=== PATIENT | female | born 1955 | race Caucasian/White ===

== ENCOUNTER → 2018-10-02 09:05 | Outpatient (CLI) | payer OTHER, SELFPAY ==
--- NOTE | 2018-10-02 | DI.MRI.S_ITS ---
PROCEDURE: MR FEMUR LT WO CON INDICATIONS: LEG WEAKNESS - left TECHNIQUE: Noncontrast coronal and sagittal T1 spin echo and STIR; axial T1 spin echo and T2 fast spin echo with fat saturation through the left femur. COMPARISON: None. FINDINGS: Image quality: Excellent. Bones: The visualized bone marrow demonstrates normal overall signal. The overlying cortex appears intact. No fractures lines or intra-osseous lesions. Soft tissues: The scanned muscles demonstrate normal overall bulk and internal signal. There are 2 small areas of mild T2 hyperintensity within the adductor lacy muscle associated with small linear areas of T2 hypointensity suggestive of thrombosed vessels.. Subcutaneous tissues appear within normal limits. No soft tissue masses or fluid collections identified. There is mild tendinopathy at the origin of the hamstring tendons. IMPRESSION: 1. No acute abnormality identified within the femur. 2. 2 small areas of indistinct T2 hyperintensity with associated linear low signal centrally in the adductor lacy muscle suggestive of small thrombosed veins. Dictated by: Nicola Cotto M.D. on 10/02/2018 at 14:31 Approved by: Nicola Cotto M.D. on 10/02/2018 at 14:39
--- NOTE | 2018-10-02 | DI.MRI.S_ITS ---
4PROCEDURE: MR FEMUR RT WO CON INDICATIONS: LEG WEAKNESS - right TECHNIQUE: Noncontrast coronal and sagittal T1 spin echo and STIR; axial T1 spin echo and T2 fast spin echo with fat saturation through the right femur. COMPARISON: None. FINDINGS: Image quality: Excellent. Bones: The visualized bone marrow demonstrates normal overall signal. The overlying cortex appears intact. No fractures lines or intra-osseous lesions. Soft tissues: The scanned muscles demonstrate normal overall bulk and internal signal. Subcutaneous tissues also appear within normal limits. No discrete soft tissue masses or fluid collections identified. There is mild peritendinous edema along the origin of the hamstring tendons. Minimal edema is also demonstrated along the distal gluteal tendons at the greater trochanter. IMPRESSION: 1. No acute abnormality identified in the right femur. 2. Mild peritendinitis at the origin of the hamstring tendons and along the insertions of the gluteal tendons. Dictated by: Nicola Cotto M.D. on 10/02/2018 at 13:58 Approved by: Nicola Cotto M.D. on 10/02/2018 at 14:30
== END ==
PROVIDERS: Visit Provider Internal Medicine
DX: M62.81 Muscle weakness (generalized) (principal); M76.01 Gluteal tendinitis, right hip
CPT/HCPCS: 73718

== ENCOUNTER → 2020-12-10 10:05 | Outpatient (CLI) | payer MEDICARE, OTHER, SELFPAY ==
--- NOTE | 2020-12-10 | DI.MRI.S_ITS ---
PROCEDURE: MR LUMBAR SPINE WO CON INDICATIONS: Spinal stenosis, lumbosacral region TECHNIQUE: Noncontrast sagittal T1 spin echo and T2 fast echo, sagittal STIR, axial T1 and T2 fast spin echo through the lumbar spine. In cases with scoliosis, additional coronal T2 fast spin echo may be performed. COMPARISON: None. FINDINGS: Image quality: Excellent. Alignment and Curvature: Mild lumbar levoscoliosis. Anterolisthesis of L4 on L5 measuring 3 millimeters. Otherwise normal alignment. Vertebral body heights maintained. Bone Marrow: There is no suspicious focal marrow signal abnormality. Periarticular bone marrow edema in association with facet osteoarthropathy from L3-L4 through L5-S1, right greater than left. Spinal Cord: Conus medullaris terminates at the normal level. Visualized cord demonstrates normal signal and size. Paraspinous Soft Tissues: No paravertebral masses. T12-L1: No spinal canal or neural foraminal stenosis. L1-L2: No spinal canal or neural foraminal stenosis. L2-L3: No spinal canal or neural foraminal stenosis. L3-L4: Diffuse disc bulge flattens and indents the ventral thecal sac, displacing the descending bilateral L4 nerve roots within both subarticular zones. Bulky facet hypertrophy and buckling of the ligamentum flavum further contribute to moderate subarticular zone stenosis on the right. There is possible impingement of the descending right L4 nerve roots in the space. Foraminal components of the disc bulge and facet osteoarthropathy contribute to mild bilateral neural foraminal stenosis. L4-L5: Disc bulge and superimposed protrusion flatten and indent the ventral thecal sac. There is displacement of the descending L5 nerve roots within both subarticular zones. Foraminal components of the disc bulge and facet osteoarthropathy along with buckling of the ligamentum flavum contribute to mild neural foraminal narrowing bilaterally, right greater than left. L5-S1: Diffuse disc bulge and a superimposed broad-based posterior disc protrusion flatten and indent the ventral thecal sac. Disc material displaces the descending S1 nerve roots within both subarticular zones, right greater than left. Foraminal components of the disc bulge and facet hypertrophy contribute to mild neural foraminal narrowing on the left. IMPRESSION: Multilevel multifactorial degenerative changes, overall worst at L3-L4. Correlate for any corresponding radicular symptoms. Dictated by: Miah Hernandez M.D. on 12/11/2020 at 8:32 Approved by: Miah Hernandez M.D. on 12/11/2020 at 8:36
== END ==
PROVIDERS: Referring Provider Internal Medicine; Visit Provider Internal Medicine
DX: M54.5 Low back pain (principal); M48.07 Spinal stenosis, lumbosacral region; M47.817 Spondylosis without myelopathy or radiculopathy, lumbosacral region; M41.86 Other forms of scoliosis, lumbar region
CPT/HCPCS: 72148

== ENCOUNTER → 2021-03-14 11:07 | Outpatient (CLI) | payer MEDICARE, OTHER, SELFPAY ==
--- NOTE | 2021-03-14 | DI.CT.S_ITS ---
PROCEDURE: CT LUMBAR SPINE WO CON INDICATIONS: Other intervertebral disc degeneration, lumbar reg TECHNIQUE: Noncontrast 3 mm thick sections acquired from the T12 level to the sacrum. Sagittal and coronal reformats were constructed. For radiation dose reduction, the following was used: automated exposure control. COMPARISON: [facility], MR, MR LUMBAR SPINE WO CON, 12/10/2020, 10:16. FINDINGS: Image quality: Excellent. Bones: Mild levocurvature. Grade 1 anterolisthesis of L4 on L5. Diffuse osteopenia. No acute fracture. Multilevel degenerative endplate sclerosis and spurring. Diffuse facet arthropathy. Few small scattered Schmorl's nodes incidentally noted. T12-L1: No canal or foraminal stenosis. L1-L2: No canal or foraminal stenosis. L2-L3: No canal or foraminal stenosis. L3-L4: Pdzf-fq-fbwhbmve canal narrowing. Partial effacement of both lateral recesses with bilaterally symmetric appearance. Facet arthropathy is present with spurring, and small posterior osteophyte. No bony foraminal stenosis. No interval change L4-L5: Mild canal narrowing. Partial effacement of both lateral recesses with bilaterally symmetric appearance. Mild right foraminal narrowing without interval change. No left foraminal stenosis. L5-S1: Mild canal narrowing. Mild bilateral foraminal narrowing without interval change. Soft tissues: No retroperitoneal masses or hematomas. Visualized aorta is normal in caliber. IMPRESSION: Lumbar spondylosis and facet arthropathy as above. Grade 1 anterolisthesis of L4 on L5 Mild levocurvature Dictated by: Oj Bazan M.D. on 03/14/2021 at 13:00 Approved by: Oj Bazan M.D. on 03/14/2021 at 13:06
== END ==
PROVIDERS: PCP Internal Medicine; Referring Provider Orthopaedic Surgery Orthopaedic Surgery of the Spine; Visit Provider Orthopaedic Surgery Orthopaedic Surgery of the Spine
DX: M51.36 Other intervertebral disc degeneration, lumbar region (principal); M47.816 Spondylosis without myelopathy or radiculopathy, lumbar region; M43.16 Spondylolisthesis, lumbar region
CPT/HCPCS: 72131

== ENCOUNTER → 2021-03-19 09:16 | Outpatient (CLI) | payer MEDICARE, OTHER, SELFPAY ==
[2021-03-19 11:28] LABS: COVID19 -Nasal RAPID Negative (Negative)
== END ==
PROVIDERS: PCP Internal Medicine; Referring Provider Physician Assistant; Visit Provider Physician Assistant
DX: Z01.812 Encounter for preprocedural laboratory examination (principal); Z20.822 Contact with and (suspected) exposure to COVID-19
CPT/HCPCS: 87635; C9803

== ENCOUNTER 2021-03-21 10:49 | Inpatient (IN) | payer MEDICARE, OTHER, SELFPAY ==
[2021-03-15 09:49] VITALS: BMI 23.3
[2021-03-21] VITALS (20 sets, daily range): BP systolic 120–165; BP diastolic 55–96; PULSE 62–101; RESP 10–18; TEMP 35.9–36.9; O2SAT 90–100; BMI 23.3
--- NOTE | 2021-03-21 | DI.RAD.S_ITS ---
PROCEDURE: XR LUMBAR SPINE 2-3V INDICATIONS: L4-5 TLIF TECHNIQUE: 2 intraoperative fluoroscopic views of the lumbar spine were acquired. COMPARISON: None. FINDINGS: Intraoperative fluoroscopic images shows transpedicular fusion at L4-5 level with intervertebral spacer placement. IMPRESSION: Fluoro guidance was provided intraoperatively for posterior fusion at L4-5 level. Dictated by: Donell Sinclair M.D. on 03/21/2021 at 17:21 Approved by: Donell Sinclair M.D. on 03/21/2021 at 17:43
[2021-03-21] MEDS: LACTATED RINGERS 1,000 ML 42 ML IV ×2 (11:26→14:35)
--- NOTE | 2021-03-21 12:08 | PM.PREOP ---
Pre-operative Note COVID-19 COVID-19 status: Negative Result date/Date tested (Pos, Neg/Pending): 03/19/21 Interval Note History & Physical reviewed/Exam performed by Physician: Yes Changes to H&P: No
[2021-03-21] MEDS: CEFAZOLIN 1 GM VIAL 2 GM IV (13:11)
--- NOTE | 2021-03-21 13:38 | SUR.OPER ---
Prone on spine table, head in foam head support, padded chest and pelvic supports, gel pad at knees, lower legs supported by pillows; nipples, genitalia and toes free of pressure, arms secured on foam padded arm boards at <90 degrees abduction. Tape over blanket at thigh secured to table.
[2021-03-21] MEDS: BUPIVACAINE LIPOSOME 266 MG/20 ML VIAL INJ (13:43)
[2021-03-21] MEDS: BUPIVACAINE 0.25% (PF) VIAL 30 ML INJ (13:44)
--- NOTE | 2021-03-21 16:18 | P.OP_ITS ---
Operative Date/Time/Diagnoses Date of procedure: 03/21/21 Time of procedure: 13:20 Pre-op diagnosis: 1. L4-5 spondylolisthesis 2. L4-5 spinal stenosis 3. Lumbar spondylosis with radiculopathy Post-op diagnosis: same Procedure & Clinicians Procedure: 1. L4-5 Postero-lateral and posterior interbody fusion 2. L4-5 interbody cage placement. 3. L4-5 decompressive laminectomy with bilateral facetecomies 4. L4-5 Posterior non-segmental instrumentation 5. L3-4 left hemilaminectomy 6. [place] of bone marrow from iliac crest 7. Utilization of microsurgical technique and operating microscope 8. Utilization of navigation system for implantation of hardware Same procedure as scheduled: Yes Indications: Patient has been having chronic back pain and worsening lumbar radiculopathy. Patient failed multiple conservative management with worsening pain weakness and numbness in her lower extremity. Patient has been having difficulty performing activity of daily living. After discussing risks benefits of treatment options, patient elected proceed with surgery. Surgeon: Jeanette Ivan Cookie Padder: William Kerr Click Yes if Unassisted: No Anesthesia Type: General Operative Notes Closure Type: primary Specimen(s): none sent Prosthetic devices, grafts, tissues, transplants, or devices: Globus CREO MIS screws, Rise cage Estimated Blood Loss (mL): 50 Blood products transfused: none Procedure in detail: Patient was seen in the preoperative area. Risks and benefits of the surgery was discussed with the patient. Informed consent was obtained from the patient and placed in the chart. Surgical site was marked. Patient was taken to the operative room. General anesthesia was administered. Prophylactic antibiotic was given to the patient less than 30 min before the incision was made. Patient was placed into a prone position on the Mitesh table. Patient's back was then prepped and draped in the sterile fashion. Time- out was performed at this time. After patient was prepped and draped, patient's PSIS was palpated and marked bilaterally. Small 1 cm incision was made over the PSIS for placement of the reference probes. Two trocar was placed into the PSIS 1 on each side. The reference probe was attached to the trocar of the reference apparatus. At this time the C-arm imaging was used to confirm AP and lateral of L4-L5 vertebrae and merged the C-arm imaging using the iDevices robotic navigation system with the CT of the lumbar spine. After successful merging was completed and confirmed, skin marker was used to marley out the skin incision using the iDevices robotic arm. Bilateral incision was made at this time. Pre templated trajectory was used and guided using the iDevices robotic navigation system for bilateral L4, L5 pedicle screw placement. This was done by using the robotic arm to guide the high-speed bur to make a cortical entry point. Next a drill was placed also using the robotic arm and guided using the navigation system drilling partially through bilateral L4, L5 pedicles. Next L4, L5 pedicle screws it was pre templated and measured was placed onto the power mechanic driver and inserted into the pedicles bilaterally. After all 4 screws were placed C-arm imaging was taken of both AP and lateral to confirm the placement. Excellent placement of the screws were confirmed and a matched precisely with the pre planned screw placement using the navigation system. MARs retractor was inserted using Apprenda guidence. Globus MARS retractors was placed inside the incision and docked onto the L4 lamina. Using microsurgical technique and operating microscope, a L4 laminectomy and L4-5 facetectomy was performed using a Kerrison rongeur. Patient was found have severe lateral recess and neural foramen stenosis which was fully decompressed after the laminectomy facetectomy. More than 75% of the facets were removed during the process of decompression rendering L4-5 level grossly unstable and required a fusion procedure at the same time. The disc space at L4-5 was identified, and a total diskectomy was performed at L4-5 level. The endplates were decorticated using a rasp and shaver. The total diskectomy and decortication was performed at L4-5 level in order to to accomplish a L4-5 fusion. The local bone from the laminectomy and facetectomy was saved for local bone grafting. After the total diskectomy and decortication was completed, Trifecta bone graft material was combined with local bone that was harvested earlier. At this time, a separate skin is incision was made over the iliac crest. A Jamshidi needle was inserted into the iliac crest through a separate skin inci susy. 5 cc of bone marrow aspiration was obtained through the separate skin incision using a Jamshidi needle from the iliac crest. The bone marrow aspiration was combined with local bone and the Trifecta bone grafting material. The bone grafting material was placed into the L4-5 interbody space along with a expandable cage. The cage was expanded to its maximum height using the torque limiting screwdriver. The disc preparation as well as the cage insertion were also performed under navigation guidance. After the cage was placed, AP and lateral C-arm imaging was taken to confirm placement of the cage and excellent position was confirmed. L3-4 hemilaminectomy was performed on the left side for further decompress the lateral recess and epidural space using microsurgical technique and operative microscope. Appropriate decompression was accomplished using the hemilaminectomy approach. Globus MARS retractor was inserted and docked onto the L4-5 posterolateral gutter on the right side. Using the power drill, posterior-lateral decortication was performed at L4-5 level until bleeding cortical bone was identified. The remaining bone grafting material was placed into the L4-5 posterior lateral gutter he order to accomplish posterolateral fusion at the L4- 5 level. At this time the tulips were attached to the L4-L5 pedicle screw shanks. After measuring the length of the rods, they were inserted into the tulips of the pedicle screws and locked in place using locking caps and torque limiting screwdriver bilaterally. Total 4 caps and 2 titanium rods was used in order to complete the posterior instrumentation construct. After all the hardware was placed, and confirmed with AP and lateral C-arm imaging, the wound was then irrigated with sterile normal saline and packed with Ray-Nataliia gauze for 3 min to accomplish hemostasis. After the gauze was removed the deep fascia was closed with #1 Vicryl suture. The subcutaneous layer was closed with 2-0 Vicryl. The skin was closed with skin lexi. Patient tolerated the procedure well. There were no complications. Neuro monitoring system was used to monitor patient's neurologic status throughout entire procedure. There was no disturbance of the neural monitoring signals throughout the case. Complications: none Post-operative Condition: stable Disposition: PACU Plan for aftercare: Admit to inpatient hospital
[2021-03-21] MEDS: OXYCODONE/ACETAMINOPHEN 5/325 TABLET 1 TAB PO (17:24)
--- NOTE | 2021-03-21 17:47 | SUR.PHASEI ---
Call to Isamar RN Inpatient to give report on [place], report given per telephone. Ela and I took patient up to room 213, at bedside. Transfer of care to floor, VSS RA Pain minimal, Pt A/O
[2021-03-21] MEDS: SODIUM CHLORIDE 0.9% 1,000 ML 100 ML IV (18:50)
[2021-03-21] MEDS: ACETAMINOPHEN 325 MG TABLET 650 MG PO (19:14)
[2021-03-21] MEDS: GABAPENTIN 300 MG CAPSULE PO (20:36)
[2021-03-21] MEDS: MAGNESIUM OXIDE 400 MG TABLET PO (20:36)
[2021-03-21] MEDS: DOCUSATE 100 MG CAPSULE PO (20:36)
[2021-03-21] MEDS: CEFAZOLIN 1 GM VIAL IV (20:36)
[2021-03-21] MEDS: SENNOSIDES 8.6 MG TABLET 17.2 MG PO (20:36)
[2021-03-21] MEDS: OXYCODONE IR 5 MG TABLET 10 MG PO (21:07)
--- NOTE | 2021-03-22 02:17 | PC.NURSE ---
Patient is alert and oriented. Breath sounds CTA with sat of 100% on oxygen at 1L/min so decreased to 0.5L/min and now sat at 97% so oxygen turned off. HRR. Denies nausea. BT present and states she just started passing some flatus. Voided on previous shift and denies dysuria, frequency or urgency. Is able to move self in bed but assisted to reposition onto right side and pillows placed for support; patient only tolerated for about 15 minutes and then back onto back. Gait not assessed but evening RN reports patient up to BSC earlier with walker and 2 assists. Dressing to back intact with 2 areas of shadow drainage. Skin is cool to touch. CMS is intact. Wearing bilateral foot SCD's. States pain is tolerable and declines offer of pain medication and is currently asleep. Fall risk score is moderate and bed alarm is activated.
[2021-03-22 04:30] VITALS: BP 132/79; PULSE 77; RESP 12; TEMP 36.1; O2SAT 99
[2021-03-22] MEDS: CEFAZOLIN 1 GM VIAL IV (04:45)
[2021-03-22] MEDS: ACETAMINOPHEN 325 MG TABLET 650 MG PO (04:49)
[2021-03-22] MEDS: SODIUM CHLORIDE 0.9% 1,000 ML 100 ML IV (04:49)
[2021-03-22 08:00] VITALS: BP 115/66; PULSE 68; RESP 18; TEMP 36.4; O2SAT 99
[2021-03-22 08:55] LABS: Hematocrit 34.1 % (36-46); Hemoglobin 11.8 g/dL (12.0-16.0)
[2021-03-22] MEDS: DOCUSATE 100 MG CAPSULE PO (09:21)
[2021-03-22] MEDS: OXYCODONE IR 5 MG TABLET 10 MG PO ×2 (09:21→12:54)
--- NOTE | 2021-03-22 10:05 | PT.IIE ---
Current Diagnoses Spondylolisthesis, lumbar region (03/21/21) Spinal stenosis, lumbar region with neurogenic claudication (03/21/21) Surgery Performed Operation Date: 03/21/21 12:15 Actual Procedures p L3-4 right hemilaminectomy, L4-5 TLIF w/posterior instrumentation(Right) - Jeanette Ivan MD Medical History (Last Reviewed 03/22/21 @ 12:11 by William Kerr PA-C) Anxiety Arthritis BCC (basal cell carcinoma), face Eczema Elevated cholesterol Sciatica Physical Therapy Inpatient Evaluation/Re-Eval M1 PT/OT-IP Prior Functional Status Start: 03/22/21 12:32 Freq: NEEDED Status: Active Protocol: Document 03/22/21 10:05 AB (Rec: 03/22/21 13:08 AB [email or web address]) Medical Review Prior Functional Status Medical History Reviewed Yes Communication able to make needs known Mobility and Gait pt stated that she is independent with all mobilities and ambulation without AD Social History Household Members spouse Living Arrangements House Number of Floors (Floors) Two Floors Number of Stairs To Enter/Railing? pt stays on main level of the house and stated that she has an elevator to get into the house Home Environment Standard Height Toilet,Walk in Shower Home Equipment Front Wheel Walker,Crutches, Grab Bars Near Toilet Additional Social History Comment stated that her spouse will initially assist her and the her children will assist her when spouse goes back to work M2 PT-IP Current Condition Start: 03/22/21 12:32 Freq: NEEDED Status: Active Protocol: Document 03/22/21 10:05 AB (Rec: 03/22/21 13:08 AB [email or web address]) Physical Therapy Current Condition Current Condition Evaluation Date 03/22/21 Treatment Diagnosis s/p L4-5 fusion/lami, L3-4 L hemilami; difficulty in walking Onset Date 03/21/21 Precautions Lumbar Precautions Log Roll,No Twisting,Limit Bending,Lifting Restriction of 10 lbs,Gait Belt above Incisional Area M3 PT-IP Subjective Start: 03/22/21 12:32 Freq: NEEDED Status: Active Protocol: Document 03/22/21 10:05 AB (Rec: 03/22/21 13:08 AB [email or web address]) Subjective Physical Therapy Visit Type Type Initial Evaluation Visit Start Time 10:05 Visit Stop Time 10:45 Total Visit Minutes 40 Number of FUNERAL COUNSELOR Visits 0 Physical Therapy Visit Comments Patient Comments pt is agreeable to do PT; c/o bilateral calf tighness and stated that this is chronic and that she has tendinitis Therapy Pain Assessment Pain When Pain Assessed At Rest Pain Present Pain Present Pain Reported Location Back Intensity 4 Scale Used Numeric (0 - 10) Pain Management Techniques Apply Cold,Modification of Treatment,Re-positioning, Timing of Activity with Medications M4 PT-IP Mobility and Gait Start: 03/22/21 12:32 Freq: NEEDED Status: Active Protocol: Document 03/22/21 10:05 AB (Rec: 03/22/21 13:08 AB [id number]) PT-Bed Mobility Assessment Rolling Type of Rolling Log Rolling Level of Assist Standby Assistance Supine to Sit Supine to Sit Standby Assistance Sit to Supine Sit to Supine Standby Assistance PT-Transfer Assessment Sit to and From Stand Sit to and from Stand Contact Guard Assistance,1 Person Assistance,Use of Upper Extremities Equipment Transfer Assistive Device Gait Belt,Front Wheeled Walker Orthotic/Prosthetic Devices or Brace: No Transfers Transfer Destination Bed,Chair Transfer Technique Stand Step Pivot Transfer Ability Level of Assist Contact Guard Assistance,Use of Upper Extremities Comments Mobility Comments pt sitting on chair and agreed to do PT. reviewed back precautions and pt was able to recall. pt c/o bilateral calves tightness and stated that this is chronic. pt completed sit to stand from the chair CGA to min A and cues. pt was able to stand using FWW for support CGA. pt ambulated in room ~ 40 ft using FWW CGA to min A. presents with antalgic gait with decreas step length and stated that she cannot have her L foot flat on the floor due to calf pain. pt ambulated to the EOB. demonstrated sit <>supine log roll SBA but required cues to complete. pt completed sit to stand again CGA ang transferred to chair using FWW CGA. positioned on chair. call light and tble placed within reach. Gait Assessment Gait Gait Assistance Required: Contact Guard Assist Distance (Feet) 40 Able to Maintain Weight Bearing Status Yes During Gait Assistive Devices Assistive Device Gait Belt,Front Wheeled Walker Orthotic/Prosthetic Devices or Brace: No Gait Deviations General Gait Pattern Antalgic,Decreased Stride Length,Decreased Feet Clearance Factors Limiting Gait Function Factors Limiting Gait Function Decreased Activity Tolerance, Decreased Strength,Limited Range of Motion,Pain,Poor Balance Comments Gait Comments pls refer to mobility section for details PT-Balance Assessment Sitting Balance and Reactions Static Sitting Balance Ability Good Dynamic Sitting Balance Ability Good Standing Balance and Reactions Static Standing Balance Ability Fair Dynamic Standing Balance Ability Fair Device Used FWW M5 PT-IP Objective Assessments Start: 03/22/21 12:32 Freq: NEEDED Status: Active Protocol: Document 03/22/21 10:05 AB (Rec: 03/22/21 13:08 AB [id number]) Orientation Orientation/Cognition Level of Alertness Alert Orientation Name,Place,Situation Language Function Ability No Deficits Noted Safety Awareness Understands Safety Issues Memory Description No Deficits Noted Gross Range of Motion Lower Extremity ROM Assessment Bilaterally Impaired Impairments B DF to neutral only Strength Lower Extremity Strength Assessment Right Impaired Hip 3+/5 Knee 4-/5 M6 PT-IP Treatment Start: 03/22/21 12:32 Freq: NEEDED Status: Active Protocol: Document 03/22/21 10:05 AB (Rec: 03/22/21 13:08 AB [id number]) Physical Therapy Treatment Education Education Provided Precautions,Weight Bearing Status,Post-Op Packet,Safety M7 PT-IP Assessment and Plan Start: 03/22/21 12:32 Freq: NEEDED Status: Active Protocol: Document 03/22/21 10:05 AB (Rec: 03/22/21 13:08 AB [email or web address]) PT Summary Assessment and Plan Potential Rehabilitation Potential Good Status of Condition at Evaluation Stable Summary Impairments Pain,ROM,Strength,Balance, Coordination,Sensation,Bed Mobility,Transfers,Gait, Activity Tolerance Assessment Summary pt requiring CGA to min A with ambulation using FWW. pt plans to go home and family to assist her. caregiver training will be conducted this after for safety with spouse. pt agreed and stated that she feels more comfortable if spouse knows how she moves. will continue to assess progress. Goals Bed Mobility Goal Independent Transfer Goal Independent,Front Wheeled Walker Gait Goal Independent,Front Wheel Walker Gait Distance 200 Days to Meet Goals 3 Frequency of Treatment Frequency Of Treatment Twice a Day Treatment Plan Physical Therapy Treatment Plan Bed Mobility Training,Transfer Training,Gait Training, Therapeutic Exercise,Balance Retraining,Post Op Education, Discharge Planning,Hot or Cold Pack,Neuromuscular Re-ed, Coordination Retraining,Manual Therapy Other Recommendations and Next Treatment caregiver training Focus Precautions Lumbar Precautions Log Roll,No Twisting,Limit Bending,Lifting Restriction of 10 lbs,Gait Belt above Incisional Area Recommendations To Nursing Amount of Assist Needed 1 Person Assist Discharge Recommendations PT Discharge Recommendations Home with Assistance Transportation Needs at Discharge Private Vehicle
--- NOTE | 2021-03-22 12:08 | P.DS_ITS ---
History of Present Illness History of Present Illness Date Patient Seen: 03/22/21 Time Patient Seen: 12:08 Chief complaint: Right Translaminar Interbody Fusion *OPB* Narrative: Refer to previous HPI. Discharge Providers Provider Discharge Date: 03/22/21 Primary care physician: Gabriella Mcneal MD Consults: 03/21/21 17:49 Consult to Occupational Therapy Evaluate & Treat Comment: Physician Instructions: Evaluate and treat Consult to Physical Therapy Evaluate & Treat Comment: Physician Instructions: Evaluate and Treat Discharge provider: William Kerr PA-C Summary Hospital Course Discharge Diagnosis: L4-5 spondylolisthesis L4-5 spinal stenosis Lumbar spondylosis with radiculopathy Status post L4-5 Postero-lateral and posterior interbody fusion 2. L4-5 interbody cage placement. 3. L4-5 decompressive laminectomy with bilateral facetecomies 4. L4-5 Posterior non-segmental instrumentation 5. L3-4 left hemilaminectomy 6. Howells of bone marrow from iliac crest 7. Utilization of microsurgical technique and operating microscope 8. Utilization of navigation system for implantation of hardware Hospital Course: Patient was admitted to the hospital following the above-listed procedures for the above-listed diagnosis. Following the procedure the patient has been convalescing appropriately in her pain has been managed with current pain management regimen. Throughout the course of her stay in the hospital patient has denied fever, chills, nausea, chest pain, shortness of breath, or urinary retention. Dressing over the incision site has remained intact and has been changed as needed as it has become damaged or soiled. Patient has successfully work on ambulation with the assistance of a front wheeled walker with physical therapy. She has avoid bending, twisting, or lifting in excess of 10 lb. Status at Discharge Cognitive/behavioral status at discharge: oriented Functional status at discharge: uses cane/walker Overall status at discharge: patient is progressing back to baseline Exam Vital Signs (past 8 hours): - 03/22/21 04:30 03/22/21 08:00 Temperature 97.0 F L 97.5 F L Pulse Rate 77 68 Respiratory Rate 12 18 Blood Pressure 132/79 115/66 Pulse Oximetry 99 99 Oxygen Delivery Method Nasal Cannula Oxygen Flow Rate 0 Narrative Exam Narrative: 65-year-old female postop day 1. Patient is resting comfortably in room chair, is in no acute distress, is alert and oriented x3. Skin is warm and dry, and the skin surrounding the incision site is free of erythema, warmth, induration, or discharge. Dressing to the incision site is clean, dry, and intact. Good sensation appreciated throughout the bilateral lower extremities to light touch. Ankle dorsiflexion, plantar flexion, eversion, inversion performed bilaterally without difficulty or discomfort. Calves are soft and nontender, negative Homans sign. DP pulses palpated bilaterally. No other signs of DVT appreciated. Const General: cooperative, healthy appearing and comfortable Resp Effort & Inspection: normal respiratory effort and able to speak in complete sentences Skin General: no rashes or lesions noted Objective Labs Result Diagrams: 03/22/21 08:40 Labs: Laboratory Results - last 24 hr 03/22/21 08:40 Hgb 11.8 L Hct 34.1 L PFSH Medical History Anxiety Arthritis BCC (basal cell carcinoma), face Eczema Elevated cholesterol Sciatica Surgical History History of colonoscopy [place] teeth removed Social History household members: spouse Smoking Status: Former smoker alcohol intake: current Discharge Assessment & Plan Assessment and Plan Assessment: Patient is doing well and is stable. Plan of Treatment: First postoperative visit in clinic is scheduled for 2 weeks following discharge from hospital. Current pain management regimen is to be continued as it is a dequately controlled the patient's pain level. Dressing over the incision site is to remain clean, dry, and intact. Dressing can be changed as needed if it becomes damaged or soiled. Patient is to remain weight-bearing as tolerated with the assistance of a front wheeled walker. Avoid bending, twisting, or lifting in excess of 10 lb. Patient is to contact clinic with any concerns or questions. Any signs of increased redness, swelling, warmth, pain, or discharge from around the incision site should be reported to the clinic. Discharge Plan Discharge Plan Patient Disposition: Home Provider Discharge Comment: Patient cleared for discharge pending PT clearance. Discharge orders & Medications Discharge Orders: Discharge (Order); Ordered 03/22/21 Ordered By: William Kerr Prescriptions: New acetaminophen 325 mg Tablet 650 mg PO Q6HR PRN (Reason: Pain, Mild (1-3)) Qty: 90 RF: 0 oxycodone 5 mg Tablet 10 mg PO Q3HR PRN (Reason: Pain, Severe (7-10)) Qty: 42 RF: 0 Continued gabapentin 300 mg Capsule 300 mg PO BEDTIME RF: 0 potassium 99 mg Tablet 99 mg PO DAILY RF: 0 ibuprofen [Advil] 200 mg Tablet 400 mg PO Q6H PRN (Reason: Pain) RF: 0 magnesium oxide 400 mg magnesium Tablet 400 mg PO BEDTIME RF: 0 tacrolimus 0.1 % Ointment 1 applic TOPICAL DAILY PRN (Reason: Eczema) RF: 0 triamcinolone acetonide 0.1 % Ointment 1 applic TOPICAL DAILY PRN (Reason: Eczema) RF: 0 ketoconazole 2 % Cream 1 applic TOPICAL DAILY PRN (Reason: Eczema to axilla) RF: 0 Systane Ultra 0.4-0.3 % Drops 2 drp EYE-BOTH QAM RF: 0 Follow up/Referrals: Gabriella Mcneal MD [Primary Care Provider] - Diet/Activity/Treatments Diet: Regular Activity: Weight-bearing as tolerated with the assistance of a front wheel walker. Avoid bending, twisting, or lifting in excess of 10 lb. Skin/Wound/Dressing Care Report to your healthcare provider any signs of infection, such as:: chills, fever, night sweats, increased pain, unusual drainage and unusual redness Dressing: Dressing over the incision site can be changed as needed if it becomes damaged or soiled. Other wound treatment: Avoid placing topical ointments over the incision site. Avoid soaking the incision site. Visit Report/Discharge Packet Instructions: DI for Transforaminal Lumbar Interbody Fusion Stand Alone Forms: Surgery Discharge Discharge Data Primary Care Provider: Gabriella Mcneal Attending Provider: Jeanette Ivan VTE Deep Vein Thrombosis/Pulmonary Embolism Present on Admission: No
[2021-03-22] MEDS: hydrOXYzine pamoate 25 MG CAPSULE PO (12:54)
--- NOTE | 2021-03-22 13:34 | OT.IP.EVAL ---
Current Diagnoses Spondylolisthesis, lumbar region (03/21/21) Spinal stenosis, lumbar region with neurogenic claudication (03/21/21) Surgery Performed Operation Date: 03/21/21 12:15 Actual Procedures p L3-4 right hemilaminectomy, L4-5 TLIF w/posterior instrumentation(Right) - Jeanette Ivan MD Past Medical History (Last Reviewed 03/22/21 @ 12:11 by William Kerr PA-C) Anxiety Arthritis BCC (basal cell carcinoma), face Eczema Elevated cholesterol History of colonoscopy Sciatica [place] teeth removed Surgical History (Last Reviewed 03/22/21 @ 12:11 by William Kerr PA-C) History of colonoscopy [place] teeth removed Occupational Therapy Inpatient Evaluation/Re-Eval M1 PT/OT-IP Prior Functional Status Start: 03/22/21 12:32 Freq: NEEDED Status: Active Protocol: Document 03/22/21 14:56 [facility] (Rec: 03/22/21 15:13 [facility] [id number]) Medical Review Prior Functional Status Medical History Reviewed Yes Communication able to make needs known Mobility and Gait pt stated that she is independent with all mobilities and ambulation without AD Activities of Daily Living and IADL's Pt states having difficulty to stand when preparing meals and not able to go for long walks. Social History Household Members spouse Living Arrangements House Number of Stairs To Enter/Railing? pt stays on main level of the house and stated that she has an elevator to get into the house Home Environment Standard Height Toilet,Walk in Shower Home Equipment Front Wheel Walker,Crutches, Grab Bars Near Toilet Additional Social History Comment stated that her spouse will initially assist her and the her children will assist her when spouse goes back to work M2 OT-IP Current Condition Start: 03/22/21 14:56 Freq: Status: Active Protocol: Document 03/22/21 14:56 [facility] (Rec: 03/22/21 15:13 [facility] [id number]) Occupational Therapy Current Condition Current Condition Evaluation Date 03/22/21 Treatment Diagnosis Spinal stenosis, s/p L3-4 right hemilaminectomy, L4-5 TLIF Post Operative Precautions Lumbar Precautions Log Roll,No Twisting,Limit Bending,Lifting Restriction of 10 lbs,Gait Belt above Incisional Area M3 OT- IP Subjective and Pain Start: 03/22/21 14:56 Freq: Status: Active Protocol: Document 03/22/21 14:56 [facility] (Rec: 03/22/21 15:13 [facility] [id number]) OT- Subjective Occupational Therapy Visit Type Type Initial Evaluation Visit Start Time 09:00 Visit Stop Time 13:34 Total Visit Minutes 64 Notes Pt seen for split treatment [id number] and [id number] when present for training. Occupational Therapy Visit Comments Patient Comments Pt agreed to do OT eval, pt's present for afternoon. Patient/Caregiver Goals TO go home. OT Pain Assessment Pain When Pain Assessed At Rest Pain Present Pain Present Pain Reported Location Back Intensity 3 Scale Used Numeric (0 - 10) M4 OT- IP ADL's Start: 03/22/21 14:56 Freq: Status: Active Protocol: Document 03/22/21 14:56 [facility] (Rec: 03/22/21 15:13 [facility] [id number]) OT [id number] General Evaluation Self-Feeding Ability Independent OT ADL-Grooming General Evaluation Grooming Ability Standby Assistance OT ADL-Oral Care Comments Oral Care Comments Educated best to spit into a cup or hinge at her hips in order to best follow her back precautions needs. OT ADL-Dressing General Eval Lower Body Dressing Ability Maximum Assistance Comments OT Dressing Comments Able to issue and educate pt on LB dressing equipment needs . Pt states her will be able to assist her at home. OT ADL-Toileting Comments OT Toileting Comments Pt not having to go , pt able to lean over appropriately to wipe during trial. Suggested wipe can be helpful for ease of cleaning for hygiene needs. OT ADL-Bathing Comments OT Bathing Comments Pt not wanting to shower at this time. Pt educated best to have a shower chair to use at home, in addition to having a HHSP , and states will assist pt. M5 OT- IP IADL's Start: 03/22/21 14:56 Freq: Status: Active Protocol: Document 03/22/21 14:56 [facility] (Rec: 03/22/21 15:13 [facility] [id number]) OT-Instrumental Activities of Daily Living Home Safety Awareness Awareness of Need for Assistance at Home Good Awareness Medication Management Medication Management Comments Pt a little groggy at this time and best to have her family provide supervision and assist as needed. Money Management Money Management Comments Pt a little groggy at this time and best to have her family provide supervision and assist as needed. Meal Preparation Meal Preparation Comments Pt a little groggy at this time and best to have her family provide supervision and assist as needed. Fern Gatherer Fern Gatherer Comments Pt a little groggy at this time and best to have her family provide supervision and assist as needed. M6 OT- IP Functional Cognition Start: 03/22/21 14:56 Freq: Status: Active Protocol: Document 03/22/21 14:56 [facility] (Rec: 03/22/21 15:13 [facility] [id number]) Cognitive Factors Limiting Selfcare Function Cognitive Ability Level of Alertness Alert Patient Orientation Name,Place,Situation Attention Span Ability Capable of Focused Attention, Capable of Sustained Attention Ability to Follow Commands Able to Follow One Step Commands with Increased Time, Able to Follow One Step Commands with Repetition Safety Awareness Decreased Recall of Precautions,Decreased Ability to Apply Precautions Cognitive Comments Cognitive Assessment Comments Pt a bit groggy and needing step by steps to follow for back precautions needs. Pt not initially remembering that the Pt saw her earlier. OT- Vision and Hearing OT- Hearing Assessment OT- Hearing Assessment WF OT- Vision Assessment Visual Acuity Glasses For Reading Visual Attentiveness [facility] M7 OT- IP Mobility and Balance Start: 03/22/21 14:56 Freq: Status: Active Protocol: Document 03/22/21 14:56 [facility] (Rec: 03/22/21 15:13 [facility] [id number]) OT- Bed Mobility Assessment Rolling Type of Rolling Roll to Right Level of Assistance Standby Assistance Supine to Sit Supine to Sit Assist Standby Assistance Sit to Supine Sit to Supine Assist Standby Assistance Scooting Scooting to Edge of Bed Standby Assistance OT-Transfer Assessment Sit to and From Stand Sit to and from Stand Contact Guard Assistance Transfers Transfer Ability Contact Guard Assistance,1 Person Assistance Technique Transfer Destination Bed,Chair Transfer Technique Stand Step Pivot Devices Transfer Assistive Devices Gait Belt,Front Wheeled Walker Comments Mobility Comments SBA mainly just cues for bed mobility needs. CGA to stand, pt tends to twist when pushing up from the bed, able to have less twisting when pushing up with one hand on the FWW and other of the bed. Pt prefers to push up from the FWW. Pt limited for walking with FWW as her legs were bothering her . OT- Gait Assessment Comments Gait Ability Comments CGA with FWW in the room short distance for this AM. OT- Balance Assessment Sitting Balance and Reactions Static Sitting Balance Ability Normal Dynamic Sitting Balance Ability Good Standing Balance and Reactions Static Standing Balance Ability Fair M8 OT- IP Objective Assessments Start: 03/22/21 14:56 Freq: Status: Active Protocol: Document 03/22/21 14:56 [facility] (Rec: 03/22/21 15:13 [facility] [id number]) OT Gross Range of Motion Upper Extremity Range of Motion Assessment Within Functional Limits OT Strength Upper Extremity Strength Assessment Within Functional Limits M9 OT- IP Assessment and Plan Start: 03/22/21 14:56 Freq: Status: Active Protocol: Document 03/22/21 14:56 [facility] (Rec: 03/22/21 15:13 [facility] [id number]) OT Summary Assessment and Plan Potential Rehabilitation Potential Good Analytic Complexity at Evaluation Low Summary OT Impairments Pain,Balance,Functional Cognition,Functional Mobility, Dressing,Toileting,Bathing, Toilet Transfers,Shower Transfers,Activity Tolerance Progress Towards Goals Slow Progress due to Pain,Slow Progress due to Activity Tolerance Assessment Summary Pt low complexity and main barriers are pain , decreased activity tolerance , balance, and now needing one person assist for ADl and functional mobility needs. Pt's present for caregiver training and states good understanding to be able to assist pt for all OT needs. Pt possibly looking to go home today. Goals Dressing Goal Independent Toileting Goal Independent Bathing Goal Standby Assistance Toilet Transfer Goal Independent Shower Transfer Goal Independent Days to Meet Goals 3 Frequency of Treatment Frequency Of Treatment Once a Day Treatment Plan OT Treatment Plan ADL Training,Functional Cognition Training,Functional Mobility,Patient/Family Education,Discharge Planning Other Treatment Recommendations and Next Shower if pt still here. Treatment Focus Discharge Recommendations OT Discharge Recommendations Home with Assistance [facility] Equipment [facility] Transportation Needs at Discharge Private Vehicle
--- NOTE | 2021-03-22 13:50 | PT.IPTN ---
Current Diagnoses Spondylolisthesis, lumbar region (03/21/21) Spinal stenosis, lumbar region with neurogenic claudication (03/21/21) Surgery Performed Operation Date: 03/21/21 12:15 Actual Procedures p L3-4 right hemilaminectomy, L4-5 TLIF w/posterior instrumentation(Right) - Jeanette Ivan MD Physical Therapy Treatment Note M2 PT-IP Current Condition Start: 03/22/21 12:32 Freq: NEEDED Status: Discharge Protocol: Document 03/22/21 10:05 [facility] (Rec: 03/22/21 13:08 AB [id number]) Physical Therapy Current Condition Current Condition Evaluation Date 03/22/21 Treatment Diagnosis s/p L4-5 fusion/lami, L3-4 L hemilami; difficulty in walking Onset Date 03/21/21 Precautions Lumbar Precautions Log Roll,No Twisting,Limit Bending,Lifting Restriction of 10 lbs,Gait Belt above Incisional Area M3 PT-IP Subjective Start: 03/22/21 12:32 Freq: NEEDED Status: Discharge Protocol: Document 03/22/21 13:50 [facility] (Rec: 03/22/21 18:00 AB [id number]) Subjective Physical Therapy Visit Type Type Treatment Note Visit Start Time 13:50 Visit Stop Time 14:30 Total Visit Minutes 40 Number of FIELD OBSERVER Visits 0 Physical Therapy Visit Comments Patient Comments pt is agreeable to do PT; spouse in room with pt Therapy Pain Assessment Pain When Pain Assessed At Rest Pain Present Pain Present Pain Reported Location Back Intensity 6 Scale Used Numeric (0 - 10) Pain Management Techniques Modification of Treatment,Re- positioning,Timing of Activity with Medications M4 PT-IP Mobility and Gait Start: 03/22/21 12:32 Freq: NEEDED Status: Discharge Protocol: Document 03/22/21 13:50 [facility] (Rec: 03/22/21 18:00 AB [id number]) PT-Bed Mobility Assessment Supine to Sit Supine to Sit Standby Assistance,1 Person Assistance Sit to Supine Sit to Supine Minimal Assistance,1 Person Assistance PT-Transfer Assessment Sit to and From Stand Sit to and from Stand Contact Guard Assistance, Minimal Assistance Equipment Transfer Assistive Device Gait Belt,Front Wheeled Walker Transfers Transfer Destination Bed,Chair Transfer Technique ambulated using FWW Transfer Ability Level of Assist Contact Guard Assistance, Minimal Assistance Comments Mobility Comments pt sitting on chair. spouse in room. caregiver training conducted. educated spouse on how to use safety belt and how to assist pt. spouse was able to put safety belt on pt. pt completed sit to stand from chair min A and cues. pt was unsteady. instructed to sit back down. educated on sit to stand techniques. pt completed again with spouse assisting and cueing and required CGA to min A. pt repeated x 3 reps. pt ambulated ~ 50 ft using FWW with spouse assisting CGA. pt continues to c/o bilateral calves tightness affecting mobility and weight bearing. pt ambulated to the bed. completed supine<>sit SBA with cues from PT. pt repeated again with spouse cueing pt and completed safely. pt completed sit to stand from EOB and transferred to chair using FWW with spouse assisting. positioned pt on the bed. call light and table placed within reach. Gait Assessment Gait Gait Assistance Required: Contact Guard Assist,Minimum Assistance Distance (Feet) 50 Able to Maintain Weight Bearing Status Yes During Gait Assistive Devices Assistive Device Gait Belt,Front Wheeled Walker Orthotic/Prosthetic Devices or Brace: No Gait Deviations General Gait Pattern Antalgic,Decreased Stride Length,Decreased Feet Clearance,Step-to Gait Factors Limiting Gait Function Factors Limiting Gait Function Decreased Activity Tolerance, Decreased Strength,Pain,Poor Balance,Poor Safety Awareness M5 PT-IP Objective Assessments Start: 03/22/21 12:32 Freq: NEEDED Status: Discharge Protocol: Document 03/22/21 10:05 AB (Rec: 03/22/21 13:08 AB [id number]) Orientation Orientation/Cognition Level of Alertness Alert Orientation Name,Place,Situation Language Function Ability No Deficits Noted Safety Awareness Understands Safety Issues Memory Description No Deficits Noted Gross Range of Motion Lower Extremity ROM Assessment Bilaterally Impaired Impairments B DF to neutral only Strength Lower Extremity Strength Assessment Right Impaired Hip 3+/5 Knee 4-/5 M6 PT-IP Treatment Start: 03/22/21 12:32 Freq: NEEDED Status: Discharge Protocol: Document 03/22/21 13:50 AB (Rec: 03/22/21 18:00 AB [id number]) Physical Therapy Treatment Education Education Provided Precautions,Post-Op Packet, Safety M7 PT-IP Assessment and Plan Start: 03/22/21 12:32 Freq: NEEDED Status: Discharge Protocol: Document 03/22/21 13:50 AB (Rec: 03/22/21 18:00 AB [id number]) PT Summary Assessment and Plan Potential Rehabilitation Potential Good Summary Impairments Pain,ROM,Strength,Balance, Coordination,Sensation,Tone, Cognition,Bed Mobility, Transfers,Gait,Activity Tolerance Progress Towards Goals Slow Progress due to Pain Assessment Summary caregiver training conducted and spouse was able to assist pt safely. pt plans to go home today and may go home when medically stable. Goals Bed Mobility Goal Independent Transfer Goal Independent,Front Wheeled Walker Gait Goal Independent,Front Wheel Walker Gait Distance 200 Days to Meet Goals 3 Frequency of Treatment Frequency Of Treatment Twice a Day Treatment Plan Physical Therapy Treatment Plan Bed Mobility Training,Transfer Training,Gait Training, Therapeutic Exercise,Balance Retraining,Post Op Education, Discharge Planning,Hot or Cold Pack,Neuromuscular Re-ed, Coordination Retraining,Manual Therapy Other Recommendations and Next Treatment caregiver training Focus Precautions Lumbar Precautions Log Roll,No Twisting,Limit Bending,Lifting Restriction of 10 lbs,Gait Belt above Incisional Area Recommendations To Nursing Amount of Assist Needed 1 Person Assist Discharge Recommendations PT Discharge Recommendations Home with Assistance Transportation Needs at Discharge Private Vehicle
--- NOTE | 2021-03-22 14:17 | CM.DANOTE ---
Addendum entered by Megan Garvey LPN 03/22/21 14:26: Met briefly with pt and her . Pt was just starting caregiver training session with PT Gwen and discussing best ways to get in and out of the car use of pillows for comfort for the long car trip back to [place]. Gwen states she anticipates clearing pt for d/c home later today and pt and her are aware of same. P: home today as noted. Original Note: Discharge Planning/Care Management DCP: assessment: case received and discussed in Team Rounds this morning. PT and OT had been ordered with the first therapy sessions to be done today. Pt is a 65 year old female who admitted yesterday for a scheduled spinal surgery/fusion. Admission status: INPT: confirmed by UR DARYN Baltazar. Payer: Medicare and [facility]. Ortho PÉREZ Thomas did see pt, put in a tentative d/c order for home: if cleared by PT. CM Discharge Assessment Start: 03/22/21 14:16 Freq: Status: Active Protocol: Document 03/22/21 14:16 ITV (Rec: 03/22/21 14:16 ITV [id number]) Discharge Planning Assessment Advance Directives? No History Provided By Medical Record Prior Living Arrangements House Household Members spouse Pre-Anesthesia Assessment Start: 03/15/21 09:49 Freq: Status: Complete Protocol: Document 03/15/21 09:49 CAB (Rec: 03/15/21 10:35 CAB [id number]) Pre-Anesthesia Assessment Patient Information Reviewed Via Phone Assessment Assessment Completed With Patient H&P Completed Within 30 Days No: Not available at time of assessment Comment Labs/EKG done 03/06 per pt, not available, COVID screen @ 03/19/21 Primary Care Provider Gabriella Mcneal Seen Specialist in Last 12 Months Yes Specialist Seen Orthopedist Primary Language 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 No Height 160.02 cm Weight 59.874 kg Body Mass Index (BMI) 23.3 Hearing Ability Normal Visual Assist Glasses Dentition Type Teeth, Natural Present,Teeth, Broken Barriers to Learning None Hx Anesthesia Reactions Allergy to fentanyl-Intense itching Additional comment Hx of colonoscopy and wisdom teeth removed only surgeries/ procedures Hx Family Anesthesia Reaction No Hx Malignant Hyperthermia No Hx Blood Transfusions No Anesthesia Review Requested No alcohol intake current alcohol intake frequency a few times a week Smoking Status Former smoker Tobacco type cigarettes how long ago did patient quit smoking Quit age approx 28 Comment CBD oil Pain Present Pain Reported Musculoskeletal Symptoms Abnormal Gait,Back Pain, Difficulty Walking,Muscle Spasms,Numbness,Radiating Pain into Limb,Tingling History of Falling (Recent or History of No ) Patient is completely paralyzed or No completely immobile Mental Status Oriented to own ability Is patient on oxygen? No Does patient have REESE/SOB No Hx Sleep Apnea No Currently Taking a Beta Latrell No Can You Climb a Flight of Stairs Without Yes SOB Hx Chest Pain No Hx SOB No Hx Syncope or Dizziness No Anti-Coagulant Therapy No Has a Electronic Masking System Operator No Cardiac Testing No Hx Pacemaker/ICD No Pacemaker Rep Required? No Diet Type At Home Regular dysphagia No Urinary Catheter Present No Hx Urinary Self Catheterization No Diabetes No Patient No Lactating No Hx Drug Resistant Organism No Presence of External or Internal Medical No Devices Have you had any close contact with No someone diagnosed with COVID-19? Marital Status Lives With spouse Prior Living Arrangements House Number of Floors (Floors) Two Floors Support System Child/Children,Spouse Does the Patient Have Assistance After Yes Surgery Patient Discharge Plan Description Return Home Comment Pt advised 1-2 day length of stay per surgeon Feels Safe in Current Environment Yes Been Physically Hurt or Threatened By a No Person in Current Environment Do you have thoughts of harming yourself None or others? Are you currently considering suicide? No Do you have a plan to hurt yourself or No Plan others? Do You Have Any Spiritual Beliefs That No May Affect Your HC Choices? Do You Have Any Cultural Practices That No May Affect Your HC Choices? Comment Denominational Who Can We Speak to About Patient's Care Family, friends Identifying Code for Release of Patient Declines to issue Information Health Care Proxy/Next of Kin Isaiah () Health Care Proxy Emergency Contact Name Isaiah () Emergency Contact Advance Directives? No Power of Welder Fitter Arc No PAC Instructions Durable medical equipment, Medications to take/avoid, Nasal antibiotic,No ETOH/ petroleum product on skin DOS, NPO,Pre-surgical wash,Sturdy shoes/comfortable clothes,Do not bring valuables and remove jewelry
--- NOTE | 2021-03-22 15:29 | PC.NURSE ---
Pt is dressed and ready for discharge home with Spouse. Dsg changed to Coversite on her back. Went over d/c instructions with Pt and Spouse - discussed d/c meds, time of last dose, reviewed stroke education, discussed ice pack use, s/s of infection, dsg, encouraged Pt to drink plenty of fluids to prevent constipation or dehydration, and consider a stool softener or miralax if she becomes constipated. Reminded Pt to follow her back precautions to assist with healing and decrease pain. Pt to follow up as scheduled and denies further questions. Pt out via w/c by SECURITIES TRADER to POV with Spouse and all belongings.
== END 2021-03-22 15:34 | disposition home or self-care (01) | DRG 455 ==
LOC: OR 10:51 → AC 10:52
PROVIDERS: Physician Assistant; Admitting Provider Orthopaedic Surgery Orthopaedic Surgery of the Spine; PCP Internal Medicine; Referring Provider Orthopaedic Surgery Orthopaedic Surgery of the Spine; Visit Provider Orthopaedic Surgery Orthopaedic Surgery of the Spine
PROC: 0SG00AJ Fusion of Lumbar Vertebral Joint with Interbody Fusion Device, Posterior Approach, Anterior Column, Open Approach (ICD-10-PCS; principal; 2021-03-21 12:15)
DX: M48.062 Spinal stenosis, lumbar region with neurogenic claudication (principal); M43.16 Spondylolisthesis, lumbar region; M47.26 Other spondylosis with radiculopathy, lumbar region; Z87.891 Personal history of nicotine dependence; Z20.822 Contact with and (suspected) exposure to COVID-19
CPT/HCPCS: 72100; 76000; 85014; 85018; 87635; 97161; 97165; 97530; 97535; C1776; C9803; C9290; J0690; J1100; J1170; J2250; J2405; J2704; J3010